=== PATIENT | female | born 1940 | race Caucasian/White ===

== ENCOUNTER → 2017-09-26 | Day surgery (SDC) | payer MEDICARE ==
[~2017-09-26] MED LIST: Sodium Chloride 0.9% 20 ML ONE; cefOXitin 2 GM, Syringe 1 ML in Sterile Water 10 ML SLOW IVP SCH
== END ==
LOC: ONC/OP 14:23
PROVIDERS: ATTEND Urology
DX: N30.90 Cystitis, unspecified without hematuria (principal); Z88.1 Allergy status to other antibiotic agents
CPT/HCPCS: 96374; 99212; A4216; G0463; J0694; J1642

== ENCOUNTER → 2017-09-26 | Day surgery (SDC) | payer MEDICARE ==
[~2017-09-26] MED LIST changes: +Heparin 1,000 UNITS/ML VIAL ONE; -Sodium Chloride 0.9% 20 ML ONE
--- NOTE | 2017-09-26 15:30 | SPC ---
PICC PLACEMENT ULTRASOUND GUIDED VENOUS ACCESS: (Peripherally Inserted Central Catheter) Date: 09/26/17 HISTORY: 77-year-old female with cystitis requiring long-term IV antibiotics. TECHNIQUE: Catheter caliber: 5 Icelandic Catheter trim length: 45 cm Catheter lumen number: Single Catheter tip location: Superior vena cava/right atrial junction Vein accessed: Left basilic Signed, informed consent was obtained. A tourniquet was applied at the proximal aspect of the arm. The arm was prepared and draped in the usual sterile fashion. A 25 gauge needle was used to apply bu ffered lidocaine superficially. The vein was punctured with a 21 gauge micropuncture needle under ul trasound guidance. A 0.018 inch guide wire was advanced through the micropuncture needle and into th e vein. Under fluoroscopic guidance, the guide wire was advanced to the right atrium. The PICC (per ipherally inserted central catheter) was flushed and trimmed to the appropriate length. The skin pun cture hole was widened with a blade. The micropuncture needle was exchanged over the guide wire for a 5 Icelandic peel-away dilator sheath. The dilator was exchanged over the guide wire for the PICC, whi ch was then further advanced under fluoroscopy. The sheath and guide wire were removed. The PICC wa s flushed again and secured in place at the arm. The patient tolerated the procedure well. There wa s no complication. IMPRESSION: Successful placement of PICC (peripherally inserted central catheter) paramjit [] POS: [facility]
== END ==
LOC: EDSEX 12:41 → SPEC 12:41
PROVIDERS: ATTEND Urology
PROC: 02HV33Z Insertion of Infusion Device into Superior Vena Cava, Percutaneous Approach (ICD-10-PCS; principal; 2017-09-26)
DX: N30.90 Cystitis, unspecified without hematuria (principal)
CPT/HCPCS: 36569; 96374; 99212; A4216; G0463; J0694; J1642; J1644

== ENCOUNTER 2017-11-02 15:24 | Outpatient (CLI) | payer MEDICARE | END 2017-11-02 15:25 | disposition home or self-care (01) | LOC: BICULT 15:24 | PROVIDERS: ATTEND Urology | DX: N30.90 Cystitis, unspecified without hematuria (principal); M21.42 Flat foot [pes planus] (acquired), left foot; N28.1 Cyst of kidney, acquired; N28.89 Other specified disorders of kidney and ureter | CPT/HCPCS: 76770 ==

== ENCOUNTER 2018-05-02 10:40 | Outpatient (CLI) | payer MEDICARE ==
[2018-05-02 13:17] LABS: #Basophils 0.1 thou/uL (0.0-0.2); #Eosinphils 0.2 thou/uL (0.0-0.7); #Lymphocytes 1.6 thou/uL (1.20-3.40); #Monocytes 0.7 thou/uL (0.11-0.59); #Neutrophils 2.7 thou/uL (1.40-6.50); %Basophils 1.6 % (0.0-1.0); %Eosinophils 4.2 % (0.0-10.0); %Lymphocytes 29.7 % (21.0-51.0); %Neutrophils 51.6 % (42.0-75.0); Hemoglobin 13.1 g/dL (12.0-16.0); Mean Corpuscular HGB CONC 34.8 g/dL (32.0-36.0); Mean Corpuscular Hemoglobin 33.3 pg (27.0-31.0); Mean Corpuscular Volume 95.8 fL (78.0-98.0); Mean Platelet Volume 7.5 fL (7.4-10.4); Platelet Count 218 thou/uL (130-400); RBC Distribution Width 12.6 % (11.5-14.5); Red Blood Cell (RBC) Count 3.95 mill/uL (4.20-5.40); White Blood Cell (WBC) Count 5.3 thou/uL (4.8-10.8)
[2018-05-02 13:32] LABS: Anion Gap 14 mmol/L (10-20); BUN (Urea Nitrogen) 25 mg/dL (9.8-20.1); Calc. Creatinine Clearance 0 mL/min (70-130); Calcium 9.9 mg/dL (7.8-10.44); Carbon Dioxide 25 mmol/L (23-31); Chloride 105 mmol/L (98-107); Estimated GFR-MDRD 62; Glucose 106 mg/dL (83-110); Potassium 4.2 mmol/L (3.5-5.1); Sodium 140 mmol/L (136-145)
--- NOTE | 2018-05-03 16:58 | EKG ---
Test Reason : Blood Pressure : / mmHG Vent. Rate : 069 BPM Atrial Rate : 069 BPM P-R Int : 182 ms QRS Dur : 082 ms QT Int : 432 ms P-R-T Axes : 052 031 077 degrees QTc Int : 462 ms Normal sinus rhythm Possible Inferior infarct , age undetermined Abnormal ECG Confirmed by NOELLE RICHMOND ([id number]) on 05/03/2018 4:58:14 PM Referred By: SARA Confirmed By:NOELLE RICHMOND
== END 2018-05-02 10:41 | disposition home or self-care (01) ==
LOC: LABBT 10:40
PROVIDERS: ATTEND Orthopaedic Surgery
DX: Z01.818 Encounter for other preprocedural examination (principal); G56.01 Carpal tunnel syndrome, right upper limb
CPT/HCPCS: 80048; 85025; 93005; 93010

== ENCOUNTER 2018-05-10 06:08 | Day surgery (SDC) | payer MEDICARE ==
[2018-05-02 11:00] VITALS: BMI 24.7
[2018-05-10] MEDS ORDERED: Lidocaine 1% w/Epinephrine 1:100K 30 ML VIAL ONE (06:53)
[2018-05-10] MEDS ORDERED: Fentanyl 100 MCG/2 ML VIAL ONE (06:54)
[2018-05-10] MEDS ORDERED: Midazolam HCl 2 mg/2 ml Vial ONE (06:54)
[2018-05-10] MEDS ORDERED: CEFAZOLIN 1 GM VIAL ONE (07:07)
[2018-05-10] MEDS ORDERED: Sodium Chloride 0.9% 100 ML ONE (07:07)
--- NOTE | 2018-05-10 09:06 | OP ---
DATE OF PROCEDURE: 05/10/2018 PREOPERATIVE DIAGNOSIS: Carpal tunnel syndrome, right. POSTOPERATIVE DIAGNOSIS: Carpal tunnel syndrome, right. SURGEON: Haroon Adames M.D. ANESTHESIA: TIVA, local. BLOOD LOSS: Minimal. SPECIMEN: None. DRAINS: None. COMPLICATIONS: None. PROCEDURE IN DETAIL: After appropriate consent was obtained, the patient was taken to the operating room where TIVA anesthesia was induced. The arm was prepped and draped in the sterile fashion. The a rm was exsanguinated. The tourniquet was inflated to 250 mmHg. A longitudinal incision was made. Hemo stasis obtained. Dissection was carried down to the transverse carpal ligament. The transverse carpal ligament was incised. Hemostat was placed deep in the transverse carpal ligament. The knife was used to cut down unto the ligament and hemostat. Care was taken to protect the contents of the carpal canal. Attention was then turned proximally. Metzenbaum scissors were used to release the carp al ligament into the forearm fascia. The carpal tunnel was palpated. There were no masses. The tourni quet was released. Hemostasis was obtained. Copious irrigation performed. The skin was closed with 4 -0 Nylon. A sterile dressing was applied and the patient was placed in a splint. There are no complic ations.
[2018-05-10] MEDS ORDERED: HYDROcodone/Acetaminophen 5/325 mg Tablet ONE (12:13)
[2018-05-10] MEDS ORDERED: PROPOFOL 200 MG/20 ML VIAL ONE (14:45)
== END 2018-05-10 09:10 | disposition home or self-care (01) ==
LOC: SDC 06:08
PROVIDERS: ATTEND Orthopaedic Surgery
PROC: 01N50ZZ Release Median Nerve, Open Approach (ICD-10-PCS; principal; 2018-05-10)
DX: G56.01 Carpal tunnel syndrome, right upper limb (principal); I48.91 Unspecified atrial fibrillation; G43.909 Migraine, unspecified, not intractable, without status migrainosus; I10 Essential (primary) hypertension; Z87.891 Personal history of nicotine dependence; Z79.82 Long term (current) use of aspirin; Z79.899 Other long term (current) drug therapy; Z88.1 Allergy status to other antibiotic agents; Z98.890 Other specified postprocedural states
CPT/HCPCS: 36416; J0690; J2001; J2250; J2704; J3010; J7050

== ENCOUNTER 2018-11-07 19:54 | Observation (INO) | payer MEDICARE ==
[2018-11-07 22:42] LABS: Troponin I 0.013 ng/mL (< 0.028)
[2018-11-08 00:03] VITALS: BMI 25.6
[2018-11-08] MEDS ORDERED: Acetaminophen 325 MG TAB PO PRN (00:18)
[2018-11-08] MEDS ORDERED: Nitroglycerin 0.4 MG TAB (25 Tab Bottle) SL PRN (00:18)
[2018-11-08] MEDS ORDERED: Diabetic Tussin 200 MG/10 ML UDCUP PO PRN (00:18)
[2018-11-08] MEDS ORDERED: Sodium Chloride 0.65% Nasal 44 ML BOT EA NARE PRN (00:18)
[2018-11-08] MEDS ORDERED: Loperamide HCl 2 MG CAP PO PRN (00:18)
[2018-11-08] MEDS ORDERED: Bisacodyl 10 MG SUPP PR PRN (00:18)
[2018-11-08] MEDS ORDERED: Senokot S 8.6-50 MG TAB PO PRN (00:18)
[2018-11-08] MEDS ORDERED: hydrALAZINE 20 MG/ML VIAL SLOW IVP PRN (00:18)
[2018-11-08] MEDS ORDERED: Calcium Carbonate 500 MG ChewTAB PO PRN (00:18)
[2018-11-08] MEDS ORDERED: Ondansetron ODT 4 MG TAB PO PRN (00:18)
[2018-11-08] MEDS ORDERED: Ondansetron PF 4 MG/2 ML Vial IVP PRN (00:18)
[2018-11-08] MEDS ORDERED: HYDROcodone/Acetaminophen 5/325 mg Tablet PO PRN (00:18)
[2018-11-08] MEDS ORDERED: Artificial Tears 18 DROP/0.9 ML EA EYE PRN (00:18)
[2018-11-08] MEDS ORDERED: Zolpidem Tartrate 5 MG TAB PO PRN (00:18)
[2018-11-08] MEDS ORDERED: Eucerin (Mineral Oil/Petrolatum,White) 30 gm Jar TOP PRN (00:18)
[2018-11-08 01:48] LABS: Troponin I 0.015 ng/mL (< 0.028)
--- NOTE | 2018-11-08 01:59 | HP ---
PRIMARY CARE PHYSICIAN: Shady Stephenson MD The patient is seen and examined on the day of 11/07/2018. REASON FOR ADMISSION: Bradycardia and hypotension episode. HISTORY OF PRESENT ILLNESS: A 78-year-old female, who was initially evaluated at [facility], and subsequently, she was transferred to our hospital for further evaluation. The patient had recently mitral valve repair in October. She was just released from rehab to go home. The patient was started on amiodarone, which was new medication and the patient was already taking Toprol for a period of time. At home, the patient was experiencing dizzy spell as well as weakness. The patient was monitoring her blood pressure and it was running low. At [facility], the patient's blood pressure was lowest 80/40 and her heart rate was running in 43. The patient was feeling miserable and that is why the patient was taken to local emergency room at [facility], and subsequently, the patient was transferred to our hospital. Dr. Alfonso was notified from [facility]. When the patient arrived to our emergency room at that time, the patient's pulse rate and blood pressure already improved. The patient was feeling better. She was not having any dizziness. She does not have any complaint of syncope, shortness of breath, palpitation, or chest pain. She denies any lower extremity edema, orthopnea, or PND. She denies any fever or chills. She denies any flu-like illness. She denies any UTI symptoms. She denies any constipation, diarrhea, melena, or hematochezia. The patient reports that she was recently prescribed Bactrim for right foot cellulitis and cellulitis is significantly improving. The patient was also taking naproxen for pain. Today, Emergency Room laboratory showed elevated creatinine from her baseline. REVIEW OF SYSTEMS: CONSTITUTIONAL: Negative for weight loss or gain, ability to conduct usual activities. SKIN: Negative for rash, itching. EYES: Negative for double vision, pain. ENT/MOUTH: Negative for nose bleeding, neck stiffness, pain, tenderness. CARDIOVASCULAR: Negative for palpitations, dyspnea on exertion, orthopnea. RESPIRATORY: Negative for shortness of breath, wheezing, cough, hemoptysis, fever or night sweats. GASTROINTESTINAL: Negative for poor appetite, abdominal pain, heartburn, nausea , vomiting, constipation, or diarrhea. GENITOURINARY: Negative for urgency, frequency, dysuria, nocturia. MUSCULOSKELETAL: Negative for pain, swelling. NEUROLOGIC/PSYCHIATRIC: Negative for anxiety, depression. ALLERGY/IMMUNOLOGIC: Negative for skin rash, bleeding tendency. See my HPI for pertinent positives and negatives. All other review of systems reviewed and negative except as mentioned in HPI. PAST MEDICAL HISTORY: Mitral valve disease status post mitral wall repair, atrial fibrillation, hypertension, and gastroesophageal reflux disease. PAST PSYCHIATRIC HISTORY: Anxiety and depression. PAST SURGICAL HISTORY: Total hysterectomy, ablation, and mitral wall repair. SOCIAL HISTORY: The patient lives at home. She is a former smoker. She drinks alcohol occasionally. She denies any other illicit drug abuse. FAMILY HISTORY: No family history of coronary artery disease, stroke, or cancer. ALLERGIES: TETRACYCLINE. CURRENT HOME MEDICATION: 1. Amiodarone 200 mg daily. 2. Toprol-XL 12.5 mg twice daily. 3. Gabapentin 300 mg p.o. daily. 4. Trazodone 50 mg p.o. at bedtime. 5. Desvenlafaxine 100 mg daily. 6. Omeprazole 20 mg daily. 7. Mobic 15 mg p.o. daily. 8. Bactrim DS 1 tablet twice daily. EMERGENCY ROOM COURSE: Reviewed. [facility] [place] [facility] course, reviewed. The patient was given IV fluid. PHYSICAL EXAMINATION: VITAL SIGNS: In our emergency room, blood pressure 136/75, 80/40 was the lowest blood pressure recorded at [facility]; pulse was 43 at [facility] and currently 77; respiratory rate 16; temperature 98; and saturation 99% on room air. Weight 65 kg. GENERAL: The patient is currently alert and oriented, no obvious acute distress. HEENT: Head; normocephalic and atraumatic. Eyes; pupils are round and reactive to light. Extraocular muscle intact. ENT, oropharynx within normal limits. Moist mucous membranes. No oral lesion. No pharyngeal erythema. No exudate. NECK: Supple. No JVD. No thyromegaly. No carotid bruit. No jugular venous distention. LUNGS: Clear to auscultation without any rhonchi or rales. CARDIAC: S1 and S2 appears slightly regular. Soft systolic murmur noted at the apex. No gallop no rub. ABDOMEN: Soft bowel sounds present. Nontender. Nondistended. No organomegaly. No mass. No suprapubic tenderness. BACK: Unremarkable. No CVA tenderness. EXTREMITIES: Upper extremities, passive movement of all joints are normal. Lower extremity, no edema. Good distal pulsation. No calf tenderness. SKIN: No skin rash. HEMATOLOGICAL SYSTEM: No lymphadenopathy. PSYCHIATRIC: Normal affect. SIGNIFICANT LABORATORY DATA: EKG showed first-degree AV block, nonspecific ST-T changes. Junctional rhythm initially in the [facility]. Chest x-ray based on my review, no acute cardiopulmonary process other than cardiomegaly. CBC; WBC 6.2, hemoglobin 10.0, and platelet of 483. INR 1.1. Sodium 136, potassium 5.0, chloride 106, carbon dioxide 18, BUN 23, creatinine 1.92, glucose 120, and calcium 9.8. LFT; AST 28, ALT 38, alkaline phosphatase 115, and albumin 3.8. Troponin negative x2. BNP 953.8. ASSESSMENT AND PLAN: 1. Dizziness, likely due to episode of hypotension and bradycardia, resolved. 2. Hypotension and bradycardia, suspecting from medication. The patient is on Toprol as well as amiodarone that might have contributed to bradycardia plus hypotension. The patient does not have any acute coronary syndrome. The patient does not have any thromboembolic disorder. The patient will be observed on telemetry floor. We will adjust medication as needed. 3. Acute kidney failure. The patient was taking NSAID as well as Bactrim DS that might have contributed to acute kidney failure. We will stop both medication and we will monitor renal function. The patient was given IV fluid and we will repeat BMP tomorrow. Because of her history of cardiac insufficiency, we will avoid giving her more fluid. 4. Elevated BNP as well as recent mitral wall repair. We will obtain echocardiography. Cardiology will be consulted. 5. Anemia normocytic, normochromic. The patient will be given ferrous sulfate 325 mg p.o. daily. 6. Atrial fibrillation. At this point, we will hold on metoprolol and amiodarone, but we will reduce the dose of both medication because of bradyarrhythmia. 7. Anxiety and depression. We will continue Pristiq 100 mg p.o. daily. 8. Gastroesophageal reflux disease. We will continue Pepcid 20 mg p.o. b.i.d. 9. Deep venous thrombosis prophylaxis not needed, because we are expecting discharge in 24 hours. 10. Gastrointestinal prophylaxis. Pepcid 20 mg p.o. b.i.d. CODE STATUS: The patient is full code. The patient's daughter is surrogate decision maker. DISPOSITION PLAN: Based on clinical course and Cardiology recommendation, this patient was seen in the emergency room on November 07, 2018. Job ID: [id number] MTDD
[2018-11-08 05:12] LABS: #Eosinphils 0.3 thou/uL (0.0-0.7); #Lymphocytes 1.5 thou/uL (1.20-3.40); #Monocytes 0.7 thou/uL (0.11-0.59); #Neutrophils 2.6 thou/uL (1.40-6.50); %Basophils 0.8 % (0.0-1.0); %Eosinophils 6.4 % (0.0-10.0); %Lymphocytes 28.6 % (21.0-51.0); %Monocytes 13.5 % (0.0-10.0); %Neutrophils 50.8 % (42.0-75.0); Hemoglobin 9.7 g/dL (12.0-16.0); Mean Corpuscular HGB CONC 32.3 g/dL (32.0-36.0); Mean Corpuscular Hemoglobin 31.2 pg (27.0-31.0); Mean Corpuscular Volume 96.7 fL (78.0-98.0); Mean Platelet Volume 6.6 fL (7.4-10.4); Platelet Count 446 thou/uL (130-400); RBC Distribution Width 13.5 % (11.5-14.5); Red Blood Cell (RBC) Count 3.12 mill/uL (4.20-5.40); White Blood Cell (WBC) Count 5.1 thou/uL (4.8-10.8)
[2018-11-08 05:39] LABS: ALT (SGPT) 29 U/L (8-55); AST (SGOT) 20 U/L (5-34); Albumin 3.4 g/dL (3.4-4.8); Alkaline Phosphatase 104 U/L (40-150); Anion Gap 13 mmol/L (10-20); BUN (Urea Nitrogen) 21 mg/dL (9.8-20.1); Bilirubin, Total 0.2 mg/dL (0.2-1.2); Calc. Creatinine Clearance 31 mL/min (70-130); Calcium 9.5 mg/dL (7.8-10.44); Carbon Dioxide 20 mmol/L (23-31); Chloride 110 mmol/L (98-107); Estimated GFR-MDRD 33; Globulin 2.2 g/dL (2.4-3.5); Glucose 96 mg/dL (83-110); Potassium 4.6 mmol/L (3.5-5.1); Protein, Total 5.6 g/dL (6.0-8.3); Sodium 138 mmol/L (136-145)
[2018-11-08] MEDS: Venlafaxine HCl XR 150 MG CAP PO SCH (08:27)
[2018-11-08] MEDS: Famotidine 20 MG TAB PO SCH ×2 (08:27→20:39)
[2018-11-08] MEDS ORDERED: Non-Formulary Item 1 EACH (Desvenlafaxine Succinate [Pristiq] 100 MG) PO SCH (09:00)
[2018-11-08] MEDS ORDERED: Dextrose 5 % And 0.9 % NaCl 1,000 ML IV SCH (12:15)
--- NOTE | 2018-11-08 15:52 | EKG ---
Test Reason : Blood Pressure : / mmHG Vent. Rate : 083 BPM Atrial Rate : 083 BPM P-R Int : 206 ms QRS Dur : 090 ms QT Int : 398 ms P-R-T Axes : 037 036 090 degrees QTc Int : 467 ms Normal sinus rhythm Nonspecific ST abnormality Borderline ECG Confirmed by NOELLE RICHMOND ([id number]) on 11/08/2018 3:51:42 PM Referred By: YI Confirmed By:NOELLE RICHMOND
--- NOTE | 2018-11-08 16:43 | PDOC.PN ---
- Subjective Encounter Start Date: 11/08/18 Encounter Start Time: 16:40 Patient lying in bed, reports feeling better. Bradycardia and hypotension improving. Denies chest pain, shortness of breath or abdominal pain. Cardiology following and started amiodarone, EKG showing sinus rhythm. - Objective Resuscitation Status - Order Detail: 11/07/18 21:54 Resuscitation Status Routine Resuscitation Status: FULL: Full Resuscitation MAR Reviewed: Yes Vital Signs & Weight: Vital Signs (12 hours) Temp Pulse Resp BP Pulse Ox 11/08/18 11:42 97.9 F 83 22 H 126/62 99 11/08/18 05:06 98.3 F 84 14 109/55 L 100 Weight Weight 140 lb 3.2 oz I&O: 11/07/18 11/08/18 11/09/18 06:59 06:59 06:59 Intake Total 500 Balance 500 Result Diagrams: 11/08/18 04:41 11/08/18 04:41 Radiology Reviewed by me: Yes EKG Reviewed by me: Yes Phys Exam - Physical Examination Constitutional: NAD HEENT: PERRLA, moist MMs Neck: no nodes, no JVD Respiratory: no wheezing, no rales Cardiovascular: RRR, no significant murmur Gastrointestinal: soft, non-tender, positive bowel sounds Musculoskeletal: no edema, pulses present Neurological: non-focal, moves all 4 limbs Psychiatric: normal affect, A&O x 3 Skin: no rash, cap refill <2 seconds Dx/Plan (1) CLINT (acute kidney injury) Code(s): N17.9 - ACUTE KIDNEY FAILURE, UNSPECIFIED Status: Acute (2) Bradycardia Code(s): R00.1 - BRADYCARDIA, UNSPECIFIED Status: Acute (3) Dizziness Code(s): R42 - DIZZINESS AND GIDDINESS Status: Acute (4) History of mitral valve replacement Code(s): Z95.2 - PRESENCE OF PROSTHETIC HEART VALVE Status: Acute (5) Iron deficiency anemia Code(s): D50.9 - IRON DEFICIENCY ANEMIA, UNSPECIFIED Status: Acute (6) A-fib Code(s): I48.91 - UNSPECIFIED ATRIAL FIBRILLATION Status: Acute - Plan cont current plan of care * Continue medical management * IV fluids with D5 * Cardiology following, started amiodarone * Currently sinus rhythm on monitor * Obtain records from [facility] * Recheck BMP in am for CLINT
[2018-11-08] MEDS ORDERED: traZODone HCl 50 MG TAB PO SCH (21:00)
[2018-11-08] MEDS ORDERED: Gabapentin 300 MG CAP PO SCH (21:00)
[2018-11-09] MEDS ORDERED: Amiodarone 200 MG TAB PO SCH (09:00)
[2018-11-09] MEDS: Famotidine 20 MG TAB PO SCH (10:04)
[2018-11-09] MEDS: Venlafaxine HCl XR 150 MG CAP PO SCH (10:05)
[2018-11-09 10:08] LABS: #Eosinphils 0.3 thou/uL (0.0-0.7); #Lymphocytes 0.9 thou/uL (1.20-3.40); #Monocytes 0.4 thou/uL (0.11-0.59); #Neutrophils 2.1 thou/uL (1.40-6.50); %Basophils 0.6 % (0.0-1.0); %Eosinophils 6.8 % (0.0-10.0); %Lymphocytes 24.5 % (21.0-51.0); %Monocytes 11.5 % (0.0-10.0); %Neutrophils 56.6 % (42.0-75.0); Hemoglobin 10.8 g/dL (12.0-16.0); Mean Corpuscular HGB CONC 32.1 g/dL (32.0-36.0); Mean Corpuscular Hemoglobin 30.1 pg (27.0-31.0); Mean Corpuscular Volume 93.8 fL (78.0-98.0); Mean Platelet Volume 6.7 fL (7.4-10.4); Platelet Count 513 thou/uL (130-400); RBC Distribution Width 13.6 % (11.5-14.5); Red Blood Cell (RBC) Count 3.59 mill/uL (4.20-5.40); White Blood Cell (WBC) Count 3.8 thou/uL (4.8-10.8)
[2018-11-09 10:35] LABS: Anion Gap 17 mmol/L (10-20); BUN (Urea Nitrogen) 14 mg/dL (9.8-20.1); Calc. Creatinine Clearance 44 mL/min (70-130); Calcium 10.4 mg/dL (7.8-10.44); Carbon Dioxide 19 mmol/L (23-31); Chloride 108 mmol/L (98-107); Estimated GFR-MDRD 51; Glucose 112 mg/dL (83-110); Potassium 4.5 mmol/L (3.5-5.1); Sodium 139 mmol/L (136-145)
[2018-11-09 12:26] LABS: Prothrombin Time 13.2 SEC (12.0-14.7)
--- NOTE | 2018-11-09 15:02 | EKG ---
Test Reason : Blood Pressure : / mmHG Vent. Rate : 094 BPM Atrial Rate : 094 BPM P-R Int : 222 ms QRS Dur : 088 ms QT Int : 350 ms P-R-T Axes : 074 029 116 degrees QTc Int : 437 ms Sinus rhythm with 1st degree A-V block Abnormal ECG Confirmed by NOELLE RICHMOND ([id number]) on 11/09/2018 3:02:16 PM Referred By: YI Confirmed By:NOELLE RICHMOND
[2018-11-09 16:03] VITALS: BP 133/61; TEMP 98.2
[2018-11-09] MEDS ORDERED: Warfarin Sodium 2.5 MG TAB PO SCH (17:00)
--- NOTE | 2018-11-10 23:36 | EKG ---
Test Reason : Blood Pressure : / mmHG Vent. Rate : 076 BPM Atrial Rate : 076 BPM P-R Int : 216 ms QRS Dur : 088 ms QT Int : 414 ms P-R-T Axes : 075 044 070 degrees QTc Int : 465 ms Sinus rhythm with 1st degree A-V block Nonspecific T wave abnormality Abnormal ECG Confirmed by CALBE MURPHY, HILLARY ([id number]), newspaper copy editor RIGO MUÑIZ ([id number]) on 11/10/2018 11:35:19 PM Referred By: Confirmed By:HILLARY ELLIS MD
== END 2018-11-09 16:04 | disposition home or self-care (01) ==
LOC: ERS 19:54 → 2SW 21:19
PROVIDERS: ADMIT Internal Medicine; ATTEND Internal Medicine
DX: R00.1 Bradycardia, unspecified (principal); I95.9 Hypotension, unspecified; I48.91 Unspecified atrial fibrillation; I10 Essential (primary) hypertension; K21.9 Gastro-esophageal reflux disease without esophagitis; F41.9 Anxiety disorder, unspecified; F32.9 Major depressive disorder, single episode, unspecified; N17.9 Acute kidney failure, unspecified; D50.9 Iron deficiency anemia, unspecified; Z95.2 Presence of prosthetic heart valve; Z90.710 Acquired absence of both cervix and uterus; Z88.1 Allergy status to other antibiotic agents; Z79.1 Long term (current) use of non-steroidal anti-inflammatories (NSAID); Z79.82 Long term (current) use of aspirin; Z79.01 Long term (current) use of anticoagulants; Z79.899 Other long term (current) drug therapy
CPT/HCPCS: 80048; 84484 ×2; 85025; 85610; 93005 ×3; 93306; 99285; G0378 ×2; 36415; 80053; 84443; 93010

== ENCOUNTER 2019-01-02 15:31 | Outpatient (CLI) | payer MEDICARE ==
--- NOTE | 2019-01-02 16:13 | BD ---
Exam: DEXA Bone Density 01/02/19 HISTORY: Postmenopausal screening for osteoporosis. Lumbar Spine: BMD (g/cm2) T-SCORE Z-SCORE L1 0.851 -1.3 1.0 L2 0.952 -0.7 1.9 L3 1.005 -0.7 2.0 L4 0.873 -1.7 1.1 L1-L4 0.927 -1.1 1.5 Femoral Neck: 0.623 -2.0 0.2 Total Femur: 0.828 -0.9 1.0 The ten year fracture risk for a major osteoporotic fracture is 28% and for hip fracture is 11%. Impression: Osteopenia. POS: [facility]
== END 2019-01-02 15:32 | disposition home or self-care (01) ==
LOC: BICMAMMO 15:31
PROVIDERS: ATTEND Internal Medicine Rheumatology
DX: M81.0 Age-related osteoporosis without current pathological fracture (principal); M85.859 Other specified disorders of bone density and structure, unspecified thigh
CPT/HCPCS: 77080

== ENCOUNTER 2019-04-01 16:20 | Outpatient (CLI) | payer MEDICARE ==
[2019-04-01 17:11] LABS: #Eosinphils 0.1 thou/uL (0.0-0.7); #Lymphocytes 1.5 thou/uL (1.20-3.40); #Monocytes 0.5 thou/uL (0.11-0.59); %Basophils 0.7 % (0.0-1.0); %Eosinophils 2.4 % (0.0-10.0); %Lymphocytes 28.7 % (21.0-51.0); %Neutrophils 58.2 % (42.0-75.0); Hemoglobin 12.8 g/dL (12.0-16.0); Mean Corpuscular HGB CONC 33.5 g/dL (32.0-36.0); Mean Corpuscular Hemoglobin 32.3 pg (27.0-31.0); Mean Corpuscular Volume 96.4 fL (78.0-98.0); Mean Platelet Volume 7.9 fL (7.4-10.4); Platelet Count 241 thou/uL (130-400); Red Blood Cell (RBC) Count 3.98 mill/uL (4.20-5.40); White Blood Cell (WBC) Count 5.2 thou/uL (4.8-10.8)
[2019-04-01 17:30] LABS: Anion Gap 14 mmol/L (10-20); BUN (Urea Nitrogen) 20 mg/dL (9.8-20.1); Calc. Creatinine Clearance 0 mL/min (70-130); Calcium 9.9 mg/dL (7.8-10.44); Carbon Dioxide 23 mmol/L (23-31); Chloride 106 mmol/L (98-107); Estimated GFR-MDRD 68; Glucose 92 mg/dL (83-110); Potassium 4.2 mmol/L (3.5-5.1); Sodium 139 mmol/L (136-145)
--- NOTE | 2019-04-03 13:16 | EKG ---
Test Reason : Blood Pressure : / mmHG Vent. Rate : 065 BPM Atrial Rate : 065 BPM P-R Int : 184 ms QRS Dur : 072 ms QT Int : 446 ms P-R-T Axes : 055 039 086 degrees QTc Int : 463 ms Normal sinus rhythm Low voltage QRS Nonspecific T wave abnormality Abnormal ECG When compared with ECG of 09-NOV-2018 07:00, IN interval has decreased Nonspecific T wave abnormality no longer evident in Inferior leads T wave inversion less evident in Anterolateral leads Confirmed by FRANCIA QUIROZ ([id number]) on 04/03/2019 1:15:57 PM Referred By: WARD Confirmed By:FRANCIA QUIROZ
== END 2019-04-01 16:21 | disposition home or self-care (01) ==
LOC: LABBT 16:20
PROVIDERS: ATTEND Orthopaedic Surgery
DX: Z01.818 Encounter for other preprocedural examination (principal); G56.01 Carpal tunnel syndrome, right upper limb
CPT/HCPCS: 80048; 85025; 93005; 93010

== ENCOUNTER 2019-04-05 08:07 | Day surgery (SDC) | payer MEDICARE ==
[2019-04-01 16:54] VITALS: BMI 23.3
[2019-04-05] MEDS ORDERED: ceFAZolin Sodium (SDC) 2 GM/100 ML BAG ONE (09:20)
[2019-04-05] MEDS ORDERED: Lidocaine 1% w/Epinephrine 1:100K 20 ML VIAL ONE (10:27)
--- NOTE | 2019-04-05 12:43 | OP ---
DATE OF PROCEDURE: 04/05/2019 PREOPERATIVE DIAGNOSIS: Chronic carpal tunnel syndrome, right wrist. POSTOPERATIVE DIAGNOSIS: Chronic carpal tunnel syndrome, right wrist. PROCEDURE PERFORMED: Re-exploration of right carpal tunnel. ANESTHESIA: General. BLOOD LOSS: Minimal. SPECIMEN: None. DRAIN: None. COMPLICATION: None. DESCRIPTION OF PROCEDURE: The patient was taken to the operating room, where general anesthesia was induced. She was answered preoperatively. Right arm was prepped and draped in the sterile fashion. After exsanguination, tourniquet was inflated to 250 mmHg. I extended her old incision proximally, dissection was carried down through the skin and subcutaneous tissue, carefully dissected the scar tissue down to the median nerve. I exposed the median nerve from the distal forearm through the carpal tunnel. I synovial tissue from the adjacent flexor tendons, where it was scarred. The nerve was then freely mobile amongst the flexor tendons in the carpal tunnel. Tourniquet was released. Irrigation was performed. Hemostasis was obtained. Skin was closed with nylon suture. Sterile dressing was applied. Job ID: [id number]
== END 2019-04-05 13:40 | disposition home or self-care (01) ==
LOC: SDC 08:07
PROVIDERS: ATTEND Orthopaedic Surgery
PROC: 01N50ZZ Release Median Nerve, Open Approach (ICD-10-PCS; principal; 2019-04-05)
DX: G56.01 Carpal tunnel syndrome, right upper limb (principal); I10 Essential (primary) hypertension; K21.9 Gastro-esophageal reflux disease without esophagitis; F32.9 Major depressive disorder, single episode, unspecified; M19.90 Unspecified osteoarthritis, unspecified site; Z87.891 Personal history of nicotine dependence; Z98.890 Other specified postprocedural states; Z88.1 Allergy status to other antibiotic agents; Z79.01 Long term (current) use of anticoagulants; Z79.899 Other long term (current) drug therapy
CPT/HCPCS: J0690; J2001

== ENCOUNTER 2021-03-25 15:09 | Outpatient (CLI) | payer MEDICARE | END 2021-03-25 15:10 | disposition home or self-care (01) | LOC: ULT 15:09 | PROVIDERS: ATTEND Family Medicine | DX: M79.89 Other specified soft tissue disorders (principal) ==

== ENCOUNTER 2021-03-26 12:24 | Emergency (ER) | payer MEDICARE ==
[2021-03-26 14:26] LABS: #Eosinphils 0.1 thou/uL (0.0-0.7); #Lymphocytes 1.3 thou/uL (1.20-3.40); #Monocytes 0.6 thou/uL (0.11-0.59); #Neutrophils 3.8 thou/uL (1.40-6.50); %Basophils 0.4 % (0.0-1.0); %Eosinophils 1.7 % (0.0-10.0); %Lymphocytes 21.7 % (21.0-51.0); %Monocytes 9.7 % (0.0-10.0); %Neutrophils 66.4 % (42.0-75.0); Mean Corpuscular HGB CONC 32.3 g/dL (32.0-36.0); Mean Corpuscular Hemoglobin 32.8 pg (27.0-31.0); Mean Platelet Volume 7.1 fL (7.4-10.4); Platelet Count 319 thou/uL (130-400); RBC Distribution Width 13.8 % (11.5-14.5); Red Blood Cell (RBC) Count 3.96 mill/uL (4.20-5.40); White Blood Cell (WBC) Count 5.8 thou/uL (4.8-10.8)
[2021-03-26 14:50] LABS: ALT (SGPT) 14 U/L (8-55); AST (SGOT) 21 U/L (5-34); Albumin 4.2 g/dL (3.4-4.8); Alkaline Phosphatase 81 U/L (40-110); Anion Gap 13 mmol/L (10-20); BUN (Urea Nitrogen) 13 mg/dL (9.8-20.1); Bilirubin, Total 0.6 mg/dL (0.2-1.2); Calc. Creatinine Clearance 0 mL/min (70-130); Calcium 9.7 mg/dL (7.8-10.44); Carbon Dioxide 25 mmol/L (23-31); Chloride 108 mmol/L (98-107); Globulin 2.1 g/dL (2.4-3.5); Glucose 103 mg/dL (83-110); Potassium 4.2 mmol/L (3.5-5.1); Protein, Total 6.3 g/dL (5.8-8.1); Sodium 142 mmol/L (136-145)
== END 2021-03-26 15:58 | disposition home or self-care (01) ==
LOC: ERS 12:24
DX: S90.922A Unspecified superficial injury of left foot, initial encounter (principal); Z87.891 Personal history of nicotine dependence; I48.91 Unspecified atrial fibrillation; I10 Essential (primary) hypertension; X58.XXXA Exposure to other specified factors, initial encounter
CPT/HCPCS: 36415; 80053; 85025; 85652; 86140

== ENCOUNTER 2021-06-23 09:17 | Outpatient (CLI) | payer MEDICARE ==
[2021-06-23 10:59] LABS: PTT 23.1 sec (22.0-33.0); Prothrombin Time 10.7 sec (9.5-12.1)
[2021-06-23 11:02] LABS: Anion Gap 14 mmol/L (10-20); BUN (Urea Nitrogen) 28 mg/dL (9.8-20.1); Calc. Creatinine Clearance 0 mL/min (70-130); Carbon Dioxide 24 mmol/L (23-31); Chloride 107 mmol/L (98-107); Glucose 108 mg/dL (83-110); Potassium 4.5 mmol/L (3.5-5.1); Sodium 140 mmol/L (136-145)
[2021-06-23 16:45] LABS: SARS-CoV-2 PCR by NAA Not Detected (NotDetected)
== END 2021-06-23 09:18 | disposition home or self-care (01) ==
LOC: LABBT 09:17
PROVIDERS: ATTEND Internal Medicine Cardiovascular Disease
DX: Z01.812 Encounter for preprocedural laboratory examination (principal); Z20.822 Contact with and (suspected) exposure to COVID-19
CPT/HCPCS: 80048; 85610; 85730; U0003; U0005

== ENCOUNTER 2021-06-25 07:09 | Day surgery (SDC) | payer MEDICARE ==
[2021-06-24 12:37] VITALS: BMI 23.3
[2021-06-25] MEDS ORDERED: Fentanyl 100 MCG/2 ML VIAL ONE (07:54)
[2021-06-25] MEDS ORDERED: PROPOFOL 20 ML ONE (07:55)
== END 2021-06-25 09:34 | disposition home or self-care (01) ==
LOC: CCL 07:09
PROVIDERS: ATTEND Internal Medicine Cardiovascular Disease
PROC: B24BZZ4 Ultrasonography of Heart with Aorta, Transesophageal (ICD-10-PCS; principal; 2021-06-25)
DX: I08.3 Combined rheumatic disorders of mitral, aortic and tricuspid valves (principal); I70.0 Atherosclerosis of aorta; I48.0 Paroxysmal atrial fibrillation; I10 Essential (primary) hypertension; K21.9 Gastro-esophageal reflux disease without esophagitis; M19.90 Unspecified osteoarthritis, unspecified site; Z87.891 Personal history of nicotine dependence; Z79.01 Long term (current) use of anticoagulants; Z79.899 Other long term (current) drug therapy; Z88.1 Allergy status to other antibiotic agents; Z98.890 Other specified postprocedural states
CPT/HCPCS: 93005; 93010; 93312; J2704; J3010

== ENCOUNTER 2021-10-12 10:18 | Emergency (ER) | payer MEDICARE ==
[2021-10-12 11:12] LABS: #Basophils 0.1 thou/uL (0.0-0.2); #Lymphocytes 0.6 thou/uL (1.20-3.40); #Monocytes 0.4 thou/uL (0.11-0.59); #Neutrophils 8.9 thou/uL (1.40-6.50); %Eosinophils 0.1 % (0.0-10.0); %Lymphocytes 5.6 % (21.0-51.0); %Monocytes 3.6 % (0.0-10.0); %Neutrophils 89.7 % (42.0-75.0); Hemoglobin 13.9 g/dL (12.0-16.0); Mean Corpuscular HGB CONC 32.3 g/dL (32.0-36.0); Mean Corpuscular Hemoglobin 32.6 pg (27.0-31.0); Mean Platelet Volume 7.5 fL (7.4-10.4); Platelet Count 225 thou/uL (130-400); RBC Distribution Width 12.6 % (11.5-14.5); Red Blood Cell (RBC) Count 4.27 mill/uL (4.20-5.40); White Blood Cell (WBC) Count 9.9 thou/uL (4.8-10.8)
[2021-10-12 11:35] LABS: ALT (SGPT) 28 U/L (8-55); AST (SGOT) 34 U/L (5-34); Alkaline Phosphatase 81 U/L (40-110); Anion Gap 16 mmol/L (10-20); BUN (Urea Nitrogen) 9 mg/dL (9.8-20.1); Bilirubin, Total 0.5 mg/dL (0.2-1.2); Calc. Creatinine Clearance 0 mL/min (70-130); Calcium 9.1 mg/dL (7.8-10.44); Carbon Dioxide 22 mmol/L (23-31); Chloride 99 mmol/L (98-107); Globulin 2.1 g/dL (2.4-3.5); Glucose 104 mg/dL (83-110); Magnesium 1.8 mg/dL (1.6-2.6); Potassium 3.3 mmol/L (3.5-5.1); Protein, Total 6.1 g/dL (5.8-8.1); Sodium 134 mmol/L (136-145)
[2021-10-12] MEDS ORDERED: Ibuprofen 200 MG TAB ONE (12:26)
[2021-10-12] MEDS ORDERED: Acetaminophen 500 MG TAB ONE (12:26)
== END 2021-10-12 12:40 | disposition home or self-care (01) ==
LOC: ERS 10:18
DX: U07.1 COVID-19 (principal); I49.3 Ventricular premature depolarization; I48.91 Unspecified atrial fibrillation; I34.1 Nonrheumatic mitral (valve) prolapse; I10 Essential (primary) hypertension; Z87.891 Personal history of nicotine dependence; Z79.82 Long term (current) use of aspirin; Z79.899 Other long term (current) drug therapy
CPT/HCPCS: 36415; 71045; 80053; 83605; 83735; 84484; 85025; 87040; 93005; 94760

== ENCOUNTER 2022-02-08 14:18 | Outpatient (CLI) | payer MEDICARE | END 2022-02-08 14:19 | disposition home or self-care (01) | LOC: BICMAMMO 14:18 | PROVIDERS: ATTEND Internal Medicine Rheumatology | DX: Z12.31 Encounter for screening mammogram for malignant neoplasm of breast (principal); M81.0 Age-related osteoporosis without current pathological fracture; M85.89 Other specified disorders of bone density and structure, multiple sites; Z85.89 Personal history of malignant neoplasm of other organs and systems | CPT/HCPCS: 77063; 77067; 77080 ==

== ENCOUNTER 2022-05-05 22:34 | Observation (INO) | payer OTHER, MEDICARE ==
[2022-05-06 02:09] VITALS: BMI 23.8
[2022-05-06] MEDS ORDERED: Acetaminophen 325 MG TAB PO PRN (03:48)
[2022-05-06] MEDS ORDERED: Lorazepam 1 MG TAB PO PRN (03:48)
[2022-05-06] MEDS ORDERED: Ondansetron ODT 4 MG TAB PO PRN (03:48)
[2022-05-06] MEDS ORDERED: Morphine 2 MG/ML VIAL SLOW IVP PRN (03:53)
[2022-05-06] MEDS ORDERED: Melatonin 3 MG TAB PO PRN (03:53)
[2022-05-06] MEDS ORDERED: Electrolyte Replacement Protocol 1 EACH FS SCH (04:00)
[2022-05-06 04:33] LABS: SARS-CoV-2 NAA Rapid Test Not Detected (NotDetected)
[2022-05-06] MEDS ORDERED: hydrALAZINE 20 MG/ML VIAL SLOW IVP PRN (04:41)
[2022-05-06] MEDS ORDERED: Cyclobenzaprine 10 MG TAB PO PRN (04:43)
[2022-05-06] MEDS ORDERED: traMADol HCl 50 MG TAB PO PRN (04:43)
[2022-05-06] MEDS ORDERED: Albuterol Sulfate 2.5 mg/3 ml Neb NEB PRN (04:52)
[2022-05-06] MEDS: Thiamine HCl 200 MG/2 ML VIAL SLOW IVP SCH (05:14)
[2022-05-06] MEDS: Sodium Chloride 0.9% 1,000 ML IV SCH ×3 (05:15→22:03)
[2022-05-06] MEDS: HYDROcodone/Acetaminophen 5/325 mg Tablet PO PRN ×4 (05:18→20:39)
[2022-05-06 06:25] LABS: Magnesium 1.8 mg/dL (1.6-2.6); Phosphorus 2.6 mg/dL (2.3-4.7)
[2022-05-06] MEDS ORDERED: Magnesium 2 GM/50 ML(in water) 2 GM in Premix Bag 1 BAG IVPB SCH (08:00)
[2022-05-06] MEDS: Enoxaparin Sodium 30 MG/0.3 ML SYRINGE SC SCH (08:06)
[2022-05-06] MEDS: Folic Acid 1 MG TAB PO SCH (08:07)
[2022-05-06] MEDS: Amlodipine 5 MG TAB PO SCH (08:07)
[2022-05-06] MEDS: Multivit, Therapeutic 1 TAB PO SCH (08:07)
[2022-05-06] MEDS: Famotidine 20 MG TAB PO SCH (08:08)
[2022-05-06] MEDS: Senokot S 8.6-50 MG TAB PO SCH ×2 (08:08→20:38)
[2022-05-06] MEDS: Venlafaxine HCl XR 75 MG CAP PO SCH (08:09)
[2022-05-06] MEDS: Polyethylene Glycol 3350 17 GM Packet PO SCH (08:27)
[2022-05-06] MEDS: Gabapentin 100 MG CAP PO SCH ×2 (13:35→20:38)
[2022-05-06] MEDS: Mometasone 200 MCG/Formoterol 5 MCG 120 PUFF INHALER INH SCH (18:31)
[2022-05-06] MEDS: Aspirin 81 mg Enteric Coated Tablet PO SCH (20:37)
[2022-05-06] MEDS ORDERED: Gabapentin 100 MG CAP PO SCH (21:00)
[2022-05-06] MEDS ORDERED: Non-Formulary Item 1 EACH (Levocetirizine Dihydrochloride [Xyzal] 5 MG Tablet) PO SCH (21:00)
[2022-05-06] MEDS ORDERED: Atorvastatin Calcium 40 MG TAB PO SCH (21:00)
[2022-05-06] MEDS ORDERED: Loratadine 10 MG TAB PO SCH (21:00)
[2022-05-07] MEDS: Thiamine HCl 200 MG/2 ML VIAL SLOW IVP SCH (03:08)
[2022-05-07] MEDS ORDERED: Lorazepam 1 MG TAB PO PRN (03:48)
[2022-05-07] MEDS: HYDROcodone/Acetaminophen 5/325 mg Tablet PO PRN ×2 (03:52→13:25)
[2022-05-07] MEDS: Gabapentin 100 MG CAP PO SCH ×2 (05:07→13:24)
[2022-05-07 06:10] LABS: #Eosinphils 0.2 thou/uL (0.0-0.7); #Lymphocytes 1.7 thou/uL (1.20-3.40); #Monocytes 0.8 thou/uL (0.11-0.59); #Neutrophils 3.3 thou/uL (1.40-6.50); %Basophils 0.6 % (0.0-1.0); %Eosinophils 3.2 % (0.0-10.0); %Lymphocytes 27.9 % (21.0-51.0); %Monocytes 12.8 % (0.0-10.0); %Neutrophils 55.5 % (42.0-75.0); Hemoglobin 11.1 g/dL (12.0-16.0); Mean Corpuscular HGB CONC 33.6 g/dL (32.0-36.0); Mean Corpuscular Hemoglobin 34.7 pg (27.0-31.0); Mean Platelet Volume 7.5 fL (7.4-10.4); Platelet Count 188 thou/uL (130-400); RBC Distribution Width 14.8 % (11.5-14.5); Red Blood Cell (RBC) Count 3.19 mill/uL (4.20-5.40); White Blood Cell (WBC) Count 5.9 thou/uL (4.8-10.8)
[2022-05-07 06:33] LABS: Anion Gap 12 mmol/L (10-20); BUN (Urea Nitrogen) 11 mg/dL (9.8-20.1); Calc. Creatinine Clearance 65 mL/min (70-130); Calcium 8.6 mg/dL (7.8-10.44); Carbon Dioxide 24 mmol/L (23-31); Chloride 107 mmol/L (98-107); Estimated GFR 90; Glucose 119 mg/dL (83-110); Potassium 4.2 mmol/L (3.5-5.1); Sodium 139 mmol/L (136-145)
[2022-05-07] MEDS: Mometasone 200 MCG/Formoterol 5 MCG 120 PUFF INHALER INH SCH (07:04)
[2022-05-07] MEDS: Senokot S 8.6-50 MG TAB PO SCH (08:51)
[2022-05-07] MEDS: Enoxaparin Sodium 30 MG/0.3 ML SYRINGE SC SCH (08:51)
[2022-05-07] MEDS: Multivit, Therapeutic 1 TAB PO SCH (08:52)
[2022-05-07] MEDS: Folic Acid 1 MG TAB PO SCH (08:52)
[2022-05-07] MEDS: Famotidine 20 MG TAB PO SCH (08:52)
[2022-05-07] MEDS: Aspirin 81 mg Enteric Coated Tablet PO SCH (08:52)
[2022-05-07] MEDS: Amlodipine 5 MG TAB PO SCH (08:53)
[2022-05-07] MEDS ORDERED: Non-Formulary Item 1 EACH (Cholecalciferol (Vitamin D3) [Vitamin D3] 5,000 UNITS Capsule) PO SCH (09:00)
[2022-05-07] MEDS ORDERED: Cholecalciferol 1,000 UNITS (25 MCG) TAB PO SCH (09:00)
[2022-05-07] MEDS ORDERED: Calcium Carbonate 600 MG TAB PO SCH (09:00)
[2022-05-07] MEDS ORDERED: Ascorbic Acid 500 mg Chewable Tablet PO SCH (09:00)
[2022-05-07] MEDS ORDERED: Zinc Sulfate 220 MG CAP PO SCH (09:00)
[2022-05-07] MEDS: Polyethylene Glycol 3350 17 GM Packet PO SCH (09:26)
[2022-05-07] MEDS: Venlafaxine HCl XR 75 MG CAP PO SCH (09:26)
[2022-05-07 11:46] VITALS: BP 113/72; TEMP 97.6
[2022-05-07] MEDS: Sodium Chloride 0.9% 1,000 ML IV SCH (12:26)
[2022-05-08] MEDS ORDERED: Lorazepam 1 MG TAB PO PRN (03:48)
[2022-05-09] MEDS ORDERED: Lorazepam 0.5 MG TAB PO PRN (03:48)
[2022-05-09] MEDS ORDERED: Thiamine 100 MG TAB PO SCH (09:00)
== END 2022-05-07 13:30 ==
LOC: SURG A 22:34 → INTOOBSV 22:34
PROVIDERS: ADMIT Internal Medicine; ATTEND Internal Medicine
DX: S32.592A Other specified fracture of left pubis, initial encounter for closed fracture (principal); I48.0 Paroxysmal atrial fibrillation; I10 Essential (primary) hypertension; Z87.891 Personal history of nicotine dependence; Z79.82 Long term (current) use of aspirin; Z79.899 Other long term (current) drug therapy; Z88.1 Allergy status to other antibiotic agents; Z88.8 Allergy status to other drugs, medicaments and biological substances; Z95.2 Presence of prosthetic heart valve; Z20.822 Contact with and (suspected) exposure to COVID-19; W01.0XXA Fall on same level from slipping, tripping and stumbling without subsequent striking against object, initial encounter
CPT/HCPCS: 80048; 83735; 84100; 85025; 94640 ×2; 97530 ×2; U0002; 36415; 96372; 96374; 96375; G0378; J1650; J3411; J3475; J7050

== ENCOUNTER 2022-10-13 15:29 | Outpatient (CLI) | payer MEDICARE | END 2022-10-13 15:30 | disposition home or self-care (01) | LOC: SCSRAD 15:29 | PROVIDERS: ATTEND Internal Medicine Rheumatology | DX: M54.2 Cervicalgia (principal); M47.812 Spondylosis without myelopathy or radiculopathy, cervical region | CPT/HCPCS: 72052 ==

== ENCOUNTER 2022-10-25 16:12 | Inpatient (IN) | payer MEDICARE ==
[2022-10-25 18:00] LABS: Troponin I 0.045 ng/mL (< 0.028)
[2022-10-25] MEDS ORDERED: Gabapentin 100 MG CAP PO SCH (21:00)
[2022-10-25 22:23] LABS: Troponin I 0.025 ng/mL (< 0.028)
[2022-10-25] MEDS ORDERED: Lorazepam 0.5 MG TAB PO SCH (23:15)
[2022-10-25] MEDS ORDERED: Aspirin Chewable 81 MG TAB ONE (23:31)
[2022-10-25] MEDS ORDERED: Lorazepam 1 MG TAB ONE (23:33)
[2022-10-25] MEDS: Sodium Chloride 0.9% 1,000 ML IV SCH (23:44)
[2022-10-25] MEDS: Aspirin 81 mg Enteric Coated Tablet PO SCH (23:44)
[2022-10-25] MEDS: Mirtazapine 15 MG TAB PO SCH (23:45)
[2022-10-25] MEDS: Loratadine 10 MG TAB PO SCH (23:45)
[2022-10-26] MEDS: sulfaSALAzine 500 MG TAB PO SCH ×5 (00:40→21:04)
[2022-10-26 02:25] VITALS: BMI 25.7
[2022-10-26] MEDS: Atorvastatin Calcium 40 MG TAB PO SCH ×2 (02:30→21:05)
[2022-10-26 05:05] LABS: #Eosinphils 0.1 thou/uL (0.0-0.7); #Lymphocytes 0.5 thou/uL (1.20-3.40); #Monocytes 0.4 thou/uL (0.11-0.59); #Neutrophils 3.2 thou/uL (1.40-6.50); %Eosinophils 2.4 % (0.0-10.0); %Monocytes 9.8 % (0.0-10.0); %Neutrophils 75.8 % (42.0-75.0); Hemoglobin 10.4 g/dL (12.0-16.0); Mean Corpuscular HGB CONC 34.4 g/dL (32.0-36.0); Mean Corpuscular Hemoglobin 34.6 pg (27.0-31.0); Mean Platelet Volume 8.6 fL (7.4-10.4); Platelet Count 168 10x3/uL (130-400); RBC Distribution Width 13.6 % (11.5-14.5); Red Blood Cell (RBC) Count 3.01 mill/uL (4.20-5.40); White Blood Cell (WBC) Count 4.2 10x3/uL (4.8-10.8)
[2022-10-26 05:25] LABS: Phosphorus 1.6 mg/dL (2.3-4.7)
[2022-10-26 05:27] LABS: ALT (SGPT) 128 U/L (8-55); AST (SGOT) 92 U/L (5-34); Albumin 3.4 g/dL (3.4-4.8); Alkaline Phosphatase 217 U/L (40-110); Anion Gap 9 mmol/L (10-20); BUN (Urea Nitrogen) 14 mg/dL (9.8-20.1); Bilirubin, Total 2.2 mg/dL (0.2-1.2); Calc. Creatinine Clearance 67 mL/min (70-130); Calcium 8.4 mg/dL (7.8-10.44); Carbon Dioxide 22 mmol/L (23-31); Chloride 106 mmol/L (98-107); Estimated GFR 89; Glucose 111 mg/dL (83-110); Magnesium 1.8 mg/dL (1.6-2.6); Protein, Total 5.4 g/dL (5.8-8.1); Sodium 134 mmol/L (136-145)
[2022-10-26] MEDS: Sodium Chloride 0.9% 1,000 ML IV SCH (08:14)
[2022-10-26] MEDS ORDERED: Venlafaxine HCl XR 75 MG CAP PO SCH ×2 (09:00→10:15)
[2022-10-26] MEDS: Colchicine 0.6 MG TAB PO SCH (09:46)
[2022-10-26] MEDS ORDERED: Lorazepam 0.5 MG TAB PO PRN (09:47)
[2022-10-26] MEDS ORDERED: Magnesium 2 GM/50 ML(in water) 2 GM in Premix Bag 1 BAG IVPB SCH (10:00)
[2022-10-26] MEDS ORDERED: Venlafaxine HCl XR 150 MG CAP PO SCH (10:00)
[2022-10-26] MEDS: Aspirin 81 mg Enteric Coated Tablet PO SCH (10:28)
[2022-10-26] MEDS ORDERED: Potassium Phosphate 30 MMOL in Sodium Chloride 0.9% 250 ML 250 ML IVPB SCH (10:30)
[2022-10-26] MEDS ORDERED: Multivitamins, Adult 10 ML, Folic Acid 1 MG, Thiamine HCl 100 MG in Dextrose 5 %-0.45 %... IV SCH (11:00)
[2022-10-26] MEDS: cefTRIAXone\\ROCEPHIN 2 GM in Sodium Chloride 0.9% 100 ML IVPB SCH (11:25)
[2022-10-26] MEDS: Gabapentin 100 MG CAP PO SCH ×2 (13:29→21:04)
[2022-10-26] MEDS ORDERED: Mirtazapine 15 MG TAB PO SCH (21:00)
[2022-10-26] MEDS ORDERED: Gabapentin 300 MG CAP PO SCH (21:00)
[2022-10-26] MEDS: Mirtazapine 15 MG TAB PO SCH (21:04)
[2022-10-26] MEDS: Loratadine 10 MG TAB PO SCH (21:04)
[2022-10-27] MEDS: Gabapentin 100 MG CAP PO SCH ×2 (05:43→13:01)
[2022-10-27 06:46] LABS: Troponin I 0.016 ng/mL (< 0.028)
[2022-10-27] MEDS: sulfaSALAzine 500 MG TAB PO SCH ×2 (08:58→12:58)
[2022-10-27] MEDS: Colchicine 0.6 MG TAB PO SCH (08:58)
[2022-10-27] MEDS ORDERED: Thiamine 100 MG TAB PO SCH (09:00)
[2022-10-27] MEDS ORDERED: Aspirin 81 mg Enteric Coated Tablet PO SCH (09:00)
[2022-10-27] MEDS ORDERED: Venlafaxine HCl XR 150 MG CAP PO SCH (09:00)
[2022-10-27] MEDS ORDERED: Folic Acid 1 MG TAB PO SCH (09:00)
[2022-10-27] MEDS ORDERED: Multivit, Therapeutic 1 TAB PO SCH (09:00)
[2022-10-27] MEDS ORDERED: Polyethylene Glycol 3350 17 GM Packet PO SCH (09:00)
[2022-10-27] MEDS: cefTRIAXone\\ROCEPHIN 2 GM in Sodium Chloride 0.9% 100 ML IVPB SCH (12:58)
[2022-10-27 16:31] VITALS: BP 134/87; TEMP 97.8
== END 2022-10-27 16:33 | disposition home or self-care (01) | DRG 872 ==
LOC: ERS 16:12 → SUATTDRO 16:12 → ERHOLD 17:45 → 2NO 10-26 01:52 → T4-A 10-26 22:41
PROVIDERS: ADMIT Family Medicine; ATTEND Hospitalist
DX: A41.9 Sepsis, unspecified organism (principal); N39.0 Urinary tract infection, site not specified; I50.9 Heart failure, unspecified; M19.90 Unspecified osteoarthritis, unspecified site; Z20.822 Contact with and (suspected) exposure to COVID-19; I11.0 Hypertensive heart disease with heart failure; F32.A Depression, unspecified; F41.9 Anxiety disorder, unspecified; E87.6 Hypokalemia; E83.39 Other disorders of phosphorus metabolism; E83.42 Hypomagnesemia; I48.0 Paroxysmal atrial fibrillation; F10.20 Alcohol dependence, uncomplicated; Z87.891 Personal history of nicotine dependence; Z88.1 Allergy status to other antibiotic agents; Z88.8 Allergy status to other drugs, medicaments and biological substances; Z98.890 Other specified postprocedural states; Z79.82 Long term (current) use of aspirin; Z79.899 Other long term (current) drug therapy
CPT/HCPCS: 36415; 80053; 83735; 84100; 84145; 84443; 84484; 85025; 87086; 93306; 94640; 99284; J0696; J1650; J3411; J3475; J3490; J7042; J7050; J7611

== ENCOUNTER 2023-07-19 14:50 | Outpatient (CLI) | payer MEDICARE | END 2023-07-19 14:51 | disposition home or self-care (01) | LOC: BICMAMMO 14:50 | PROVIDERS: ATTEND Internal Medicine | DX: Z12.31 Encounter for screening mammogram for malignant neoplasm of breast (principal); Z85.89 Personal history of malignant neoplasm of other organs and systems | CPT/HCPCS: 77063; 77067 ==

== ENCOUNTER 2024-07-24 13:34 | Outpatient (CLI) | payer MEDICARE | END 2024-07-24 13:35 | disposition home or self-care (01) | LOC: BICMAMMO 13:34 | PROVIDERS: ATTEND Internal Medicine Rheumatology | DX: Z12.31 Encounter for screening mammogram for malignant neoplasm of breast (principal); M81.0 Age-related osteoporosis without current pathological fracture; M85.89 Other specified disorders of bone density and structure, multiple sites | CPT/HCPCS: 77063; 77067; 77080 ==